=== PATIENT | male | born 1950 | race Caucasian/White ===

== ENCOUNTER → 2023-11-22 10:45 | Outpatient (REF) | payer OTHER, SELFPAY | LOC: DHVS 10:45 | PROVIDERS: ATTENDING PHYSICIAN Physician Assistant | DX: I73.9 Peripheral vascular disease, unspecified (principal) | CPT/HCPCS: 93922; 93925 ==

== ENCOUNTER → 2024-11-29 10:36 | Outpatient (REF) | payer OTHER, SELFPAY | LOC: DHVS 10:36 | PROVIDERS: ATTENDING PHYSICIAN Surgery Vascular Surgery | DX: R73.9 Hyperglycemia, unspecified (principal) | CPT/HCPCS: 93922; 93925 ==